=== PATIENT | female | born 1965 | race Caucasian/White ===

== ENCOUNTER 2024-05-09 18:37 | Emergency (ER) | payer OTHER ==
[~2024-05-09] VITALS: Ht 157.5 cm; Wt 99.8 kg
[2024-05-09 19:13] VITALS: BP_SYST 126; PULSE 60; RESP 20; TEMP 98; O2SAT 96
[2024-05-09 23:50] VITALS: BP_SYST 139; PULSE 63; RESP 19; TEMP 97.7; O2SAT 98
== END 2024-05-09 23:44 | disposition home or self-care (01) ==
LOC: SED 18:37
DX: M79.662 Pain in left lower leg (principal); M79.622 Pain in left upper arm
CPT/HCPCS: 93971; 99284